=== PATIENT | female | born 1970 | race Caucasian/White ===

== ENCOUNTER 2017-01-06 12:41 | Emergency (ER) | payer OTHER ==
[2017-01-06] MEDS ORDERED: Ketorolac Tromethamine 60 MG/2 ML VIAL ONE (13:36)
[2017-01-06] MEDS ORDERED: traMADol HCl 50 MG TAB ONE (13:37)
== END 2017-01-06 14:15 | disposition home or self-care (01) ==
LOC: ERS 12:41
DX: M54.12 Radiculopathy, cervical region (principal); F41.9 Anxiety disorder, unspecified; F32.9 Major depressive disorder, single episode, unspecified; F43.10 Post-traumatic stress disorder, unspecified; F17.210 Nicotine dependence, cigarettes, uncomplicated
CPT/HCPCS: 96372; J1885

== ENCOUNTER 2017-01-30 14:55 | Outpatient (CLI) | payer OTHER ==
--- NOTE | 2017-01-30 20:16 | RAD ---
FIVE VIEWS CERVICAL SPINE INCLUDING FLEXION AND EXTENSION VIEWS: 01/30/17 HISTORY: Cervical radiculopathy. Patient states right sided neck pain with radiation of pain into the right a rm as well as third through fifth digit numbness. Symptoms have been present for a few years. FINDINGS: C1 to the cervicothoracic junction is seen on the lateral view. There is straightening of the normal cervical lordotic curvature. Osteophytes are seen anteriorly at multiple levels predominantly in th e lower cervical spine and greatest at C5-6 level. No fracture or subluxation is seen. prevertebral soft tissues are within normal limits. IMPRESSION: Mild degenerative changes in the cervical spine, but no fracture or subluxation is seen. POS: [facility]
--- NOTE | 2017-01-30 20:32 | RAD ---
FOUR IMAGES OF THE LUMBAR SPINE 01/30/17 HISTORY: Lumbar radiculopathy and bilateral hip pain. Patient has pain radiating down left lateral leg. Sympt oms have been present for a few months. FINDINGS: There are six nonribbearing lumbar type vertebral bodies. Chest x-ray on 09/02/16 demonstrates twelve thoracic ribs. Vertebral body heights and intervertebral disc spaces are within normal limits. Mini mal osteophytes are seen anteriorly at several levels. No fracture or subluxation is seen involving the lumbar spine. There is slight right convexed curvature of the thoracolumbar spine. There is sugg estion of a punctate grouping of calcifications in the right lower quadrant adjacent to the L4-5 lev el and these calcifications appears to be anteriorly located on the lateral view and are only seen o n the extension lateral view of the lumbar spine. The exact etiology for these calcifications is unc ertain. IMPRESSION: 1. Grouping of punctate calcifications right lower quadrant of which the exact etiology is unce rtain. Followup abdominal radiograph is recommended. 2. Minimal degenerative changes in the lumbar spine. No fracture or subluxation is present. POS: [facility]
--- NOTE | 2017-01-30 21:06 | MRI ---
MRI CERVICAL SPINE NONCONTRAST: 01/30/17 HISTORY: 46-year-old female with cervical radiculopathy, M54.12. Right sided cervicalgia that radiates to the right upper extremity, with hypesthesia of the digits. FINDINGS: There is no Chiari I malformation. The cervical spinal cord is normal in size and signal. Vertebral body heights are maintained. There is multilevel mild to moderate degenerative disc disease, with mi ld disc space narrowing, broad-based, shallow disc-osteophyte complexes encroaching upon the anterio r aspect of the spinal canal, and bilateral uncinate process osteophytes, mostly small, throughout a ll levels of the cervical spine (except C1-2). C1-2: No central stenosis. C2-3: No central stenosis or high grade neural foraminal stenosis. Mild DJD of right facet joint. Es sentially normal left facet joint. C3-4: Essentially normal left facet joint. Mild to moderate right facet DJD. Moderate right neural f oraminal stenosis. No left neural foraminal stenosis. No central stenosis. C4-5: The combination of moderate DJD of right facet complex and asymmetrically prominent right unci layne process osteophytes, result in severe right neural foraminal stenosis. No left sided neural for aminal stenosis. No central spinal canal stenosis. In addition, there is bone marrow edema involving the entire right C4 lateral mass. There is also bone marrow edema involving the right superior vivi cular facet of C5, and separately, bone marrow edema in the right inferior articular facet of C5. Th ere is also soft tissue swelling and soft tissue edema around the right facet complex. The left face t joint is essentially normal. C5-6: No central stenosis. No high grade degenerative facet changes. Bilateral tiny nerve root sleev e cysts, right larger than left. Mild bilateral neural foraminal stenosis. C6-7: In addition to the disc-osteophyte complex, there is a superimposed shallow central and left p aracentral disc extrusion which is narrow the anteroposterior dimension, but has inferiorly migrated down to the pedicle level of C7. Overall, there is mild to moderate central spinal canal stenosis. Bilateral nerve root sleeve cysts, right larger than left. Mild bilateral neural foraminal stenosis. No degenerative facet changes. C7-T1: Tiny bilateral nerve root sleeve cyst. Mild bilateral neural foraminal stenosis, right greate r than left. Mild central spinal canal stenosis. No significant degenerative facet changes. IMPRESSION: 1. Cervical spondylosis, mild to moderate. 2. Right sided C4-5 facet arthritis, with bone marrow edema, surrounding soft tissue edema, and severe right neural foraminal stenosis, impinging on the exiting right C5 nerve root. 3. No cord impingement. POS: [facility]
--- NOTE | 2017-01-30 21:55 | MRI ---
MRI LUMBAR SPINE: 01/30/17 HISTORY: Lumbar radiculopathy. Noncontrast enhanced MRI images lumbar spine obtained. For the purposes of this dictation, the last freely mobile vertebral body will be considered to be t he L5 vertebral body. All other vertebral bodies numbered according to this. T12-L1, L1-2: Unremarkable. L2-3: There is some disc desiccation. There is a mild broad based disc bulge and mild facet and liga mentum flavum hypertrophy. No significant degree of central or neural foraminal narrowing is seen. L3-4: Disc desiccation is seen. There is a broad based central and right paracentral disc protrusion . The right paracentral protrusion narrows the anterior aspect of the L3-4 spinal canal mildly narro wing the lateral recess at L3-4. This may compress the right L4 nerve root as it passes through the lateral recess. The right L3 nerve root is unremarkable. L4-5: Disc desiccation is seen. An annular fissure is seen along the posterior aspect of the annulus fibrosis. A broad based disc bulge is seen. Bilateral facet and ligamentum flavum hypertrophy is se en. This results in mild central and lateral recess spinal stenosis. The neural foramen are patent. L5-S1: Unremarkable except for some mild facet hypertrophy. IMPRESSION: 1. Disc desiccation at L2-3. 2. Central and paracentral disc protrusions at L3-4 and L4-5 with some central and lateral rece ss stenosis. POS: [facility]
== END 2017-01-30 14:56 | disposition home or self-care (01) ==
LOC: TBSIIMAG 14:55
PROVIDERS: ATTEND Surgery
DX: M47.22 Other spondylosis with radiculopathy, cervical region (principal); M51.16 Intervertebral disc disorders with radiculopathy, lumbar region; M48.061 Spinal stenosis, lumbar region without neurogenic claudication; M46.92 Unspecified inflammatory spondylopathy, cervical region; M48.02 Spinal stenosis, cervical region
CPT/HCPCS: 72050; 72110; 72141; 72148

== ENCOUNTER 2017-02-08 07:45 | Outpatient (CLI) | payer OTHER ==
[2017-02-08] MEDS ORDERED: Gadobenate Dimeglumine 529 MG/1 ML (20ML VIAL) ONE (09:00)
--- NOTE | 2017-02-08 11:35 | CT ---
CT OF THE ABDOMEN AND PELVIS WITH IV CONTRAST: Date: 02/08/17 INDICATION: History of a calcified mass identified within the abdomen and pelvis on x-ray examination performed at [facility]. The patient is experiencing no pain and has only a history of a hysterecto my. COMPARISON: Lumbar spine radiographs dated 01/30/17. FINDINGS: The lung bases are clear. There is a healed fracture involving the right posterolateral 9th rib. The gallbladder is not visualized and may be surgically absent or prominently contracted. Small calc ific density is seen near the expected region of the cystic duct. There is some mild intrahepatic an d extrahepatic biliary ductal dilatation. The pancreas and spleen are normal appearing. The adrenal glands and kidneys are normal appearing. N o pathologically enlarged lymph nodes are grossly evident. There is a normal appendix in the right lower quadrant. There is a 1.2 x 1.7 cm hyperdense nodular lesion seen just posterior to the distal left ureter and the posterolateral aspect of the bladder. This does not appear to be contiguous to the bladder. The uterus is surgically absent. The adnexa on the left is not visualized. The right ovary is visualized on image 6, series 2, and is normal appearing by CT. The bladder, rectum, and perirectal soft tissues are unremarkable. There is mild disc degenerative disease of the lumbar spine. No acute fracture is evident. The stippled densities seen right of midline at the L4 level on the comparison lumbar spine radiogra ph has no CT equivalent. This may reflect artifact on the imaging receptor plate or on the patient's clothing. IMPRESSION: 1. Stippled density seen right of midline at the L4 level on the comparison radiograph dated is likely related to overlying artifact either from the patient's clothing or on the imaging rece ptor plate. 2. There is a nodular hyperdense lesion seen within the left lower hemipelvis that is posterior to the left ureter and posterolateral aspect of the bladder. This does not appear to be contiguous with the bladder; however, a small, thin-necked bladder diverticulum cannot be excluded. Alternatively, this may reflect some hyperdense fibrous tissue from the patient's hysterectomy. This also could ref lect an enlarged lymph node. Small endometrioma is part of the differential consideration. Recommend correlation with patient's history. A MRI of the pelvis with and without contrast is recommended to evaluate this lesion further. 3. Nonvisualization of the gallbladder, suspected to be surgically absent although not reported in the patient's history. 4. Other findings as above. POS: [facility]
--- NOTE | 2017-02-08 12:00 | MRI ---
MRI OF THE CERVICAL SPINE WITH IV CONTRAST: INDICATIONS: Concern for cervical facet lesion and cervical radiculopathy. TECHNIQUE: Multiplanar, multisequence MR images were obtained of the cervical spine with and without IV contras t. The patient only had T1 pre and post images in the axial and sagittal plain through this evaluat ion. Comparisons for additional sequences are made from a recently performed cervical spine MRI, da sam 01/30/2017. Comparisons are made with a CT of the cervical spine dated 02/08/2017. FINDINGS: As seen on the comparison MRI examination, dated 01/30/2017, there is marked joint hypertrophy and a bnormal signal involving the right C4-C5 facet complex. There is an area of subchondral T2 hyperint ensity with serpiginous enhancement involving the superior aspect of the right C5 facet joint with a ssociated posterior tract extending beyond the cortex, best seen on image 29 of series 7. This pino esponds to an area of subchondral lucency involving the superior aspect of C5 on the comparison CT e valuation. There is marked periarticular soft tissue enhancement of the right C4-C5 facet complex, in additional to enhancement of the right C4-C5 neural foramina. There is central enhancement withi n the right C4 and right C5 facet complex, as well as the adjacent lamina. There is some uncoverteb ral hypertrophy at this level, which, in addition to the facet complex, does induce severe right C4- C5 neural foraminal narrowing. No additional focal region of abnormal enhancement if demonstrated. The remainder of the examination appears similar. IMPRESSION: Abnormal signal and enhancement involving the right C4-C5 facet complex, with suspicion for a small focal area of subchondral enhancement and enhancing tract extending out the posterior aspect of the C5 complex. Differential considerations for this finding include an right C4-C5 facet septic arthri tis with associated small intraosseous abscess involving the superior aspect of C5. Alternatively, this may reflect changes of an inflammatory arthropathy with associated secondary osteoarthritic sher nge of the right C4-C5 complex. The subchondral lucency involving the superior aspect of C5 with en hancement may be related to a subchondral cyst like abnormality with associated enhancing synovium. There is adjacent enhancement of the right C4-C5 neural foramina, likely involving the right C5 ner ve. There is uncovertebral hypertrophy and joint hypertrophy inducing severe right C4-C5 neural for aminal narrowing. POS: [facility]
--- NOTE | 2017-02-08 12:19 | CT ---
CT OF THE CERVICAL SPINE WITHOUT CONTRAST: Indication: Neck pain with pain in the right third through fourth and fifth digits. FINDINGS: There is disc degenerative disease of C4 on C5 and C5 on C6. There is slight anterior translation of C4 on C5 of approximately 1.5 mm. There is near complete obliteration of the normal appearing right C4-5 facet joint with subchondral cyst like abnormality involving the superior aspect of C5. There is exuberant surrounding osteophytosis. The remaining additional facets appear within normal limits. There is facet joint hypertrophy and uncal vertebral hypertrophy at C4-5 inducing severe right neur al foraminal narrowing. There is mild bilateral facet joint degenerative change, right greater than right, at C5-6 and C6-7. No additional appreciable osseous central canal or neural foraminal narrowi ng is evident. IMPRESSION: 1. Prominent hypertrophy and loss of joint space delineation of the right C4-5 facet complex with ortiz rrounding osteophytosis is suspicious for advanced osteoarthritic change of the right C4-5 joint. Th is may be related to prior trauma, prior infection, or possibly inflammatory arthritis. The exuberan t joint hypertrophy and uncal vertebral hypertrophy at C4-5 induces severe right C4-5 neural foramin al narrowing. 2. Mild spondylosis of the cervical spine. POS: [facility]
== END 2017-02-08 07:46 | disposition home or self-care (01) ==
LOC: SCSMRI 07:45
PROVIDERS: ATTEND Surgery
DX: M47.22 Other spondylosis with radiculopathy, cervical region (principal); R19.00 Intra-abdominal and pelvic swelling, mass and lump, unspecified site; M89.9 Disorder of bone, unspecified; M53.82 Other specified dorsopathies, cervical region
CPT/HCPCS: 72125; 72142; 74177; A9579

== ENCOUNTER 2017-02-21 22:20 | Emergency (ER) | payer OTHER ==
[~2017-02-21 22:20] MED LIST: ISOVUE-370 76%-LOCM 1 ML ONE
[2017-02-21] MEDS ORDERED: Ondansetron HCl/PF 4 MG/2 ML Vial ONE (22:48)
[2017-02-21] MEDS ORDERED: Loperamide HCl 2 MG CAP ONE (22:48)
[2017-02-21 22:51] LABS: Anion Gap 14 mmol/L (-14-95); T. Carbon Dioxide 21.7 mmol/L (1.0-85.0); pH (Venous) 7.536 (7.35-7.45); vO2 Saturation-calc 51.1 % (0.0-100.0)
[2017-02-21] MEDS ORDERED: Ketorolac Tromethamine 30 MG/ML VIAL ONE (23:33)
[2017-02-21 23:55] LABS: ALT (SGPT) 55 U/L (8-55); AST (SGOT) 57 U/L (5-34); Alkaline Phosphatase 190 U/L (40-150); Anion Gap 19 mmol/L (10-20); BUN (Urea Nitrogen) 9 mg/dL (7.0-18.7); Bilirubin, Total 1.5 mg/dL (0.2-1.2); Calc. Creatinine Clearance 0 mL/min (70-130); Calcium 9.6 mg/dL (7.8-10.44); Carbon Dioxide 20 mmol/L (22-29); Chloride 102 mmol/L (98-107); Estimated GFR-MDRD 61; Globulin 3.4 g/dL (2.4-3.5); Lipase Less than 4 U/L (8-78); Protein, Total 7.7 g/dL (6.0-8.3)
--- NOTE | 2017-02-21 23:58 | CT ---
CT ABDOMEN AND PELVIS WITH IV CONTRAST 02/21/17 HISTORY: Abdominal pain. Fever. FINDINGS: Small hiatal hernia is apparent. There is dense air space infiltrate of the right posterior lung base . Gallbladder is not visualized and is presumed to be surgically absent. Nonspecific lymph nodes are scattered throughout the abdomen. Urinary bladder is unremarkable. The small hyperdense lesion at the left apex of the vaginal cuff is stable compared to the prior study. IMPRESSION: Right lower lobe pneumonia. POS: [facility]
[2017-02-22 00:07] LABS: Mean Platelet Volume 8.1 fL (7.4-10.4); Red Blood Cell (RBC) Count 4.72 mill/uL (4.20-5.40)
[2017-02-22 00:08] LABS: Band 13 % (5-11); Metamyelocyte 2 % (0-0); Neutrophil 72 % (42-75); Reactive Lymphocytes 1 % (0-10)
[2017-02-22] MEDS ORDERED: Acetaminophen 500 MG TAB ONE (00:15)
--- NOTE | 2017-02-22 07:47 | RAD ---
PORTABLE CHEST: Date: 02/21/17 HISTORY: Fever. FINDINGS: Heart size is within normal limits. There are infiltrative changes in the right lung base. Slightly i ncreased parahilar markings are also present. IMPRESSION: Pneumonic type infiltrate in the right lung base. POS: [facility]
== END 2017-02-22 01:45 | disposition home or self-care (01) ==
LOC: ERS 22:20
DX: J18.9 Pneumonia, unspecified organism (principal); F41.9 Anxiety disorder, unspecified; F32.9 Major depressive disorder, single episode, unspecified; F43.10 Post-traumatic stress disorder, unspecified; F17.210 Nicotine dependence, cigarettes, uncomplicated
CPT/HCPCS: 71010; 74177; 80053; 82330; 82803; 83690; 85025; 96361; 96365; 96375; J1885; J1956; J2405

== ENCOUNTER 2017-05-16 08:16 | Outpatient (CLI) | payer OTHER ==
--- NOTE | 2017-05-16 10:44 | MRI ---
MRI BRAIN WITH AND WITHOUT CONTRAST: DATE: 05-16-16 HISTORY: 47-year-old female with headache for one month. R51 TECHNIQUE: Multiple sequences obtained in axial, sagittal, and coronal planes; pre and post IV injection of gado linium-based contrast agent: 17 ml MultiHance. FINDINGS: The ventricles are normal in size and configuration. There is no major intraaxial signal abnormality , restricted diffusion, abnormal intraaxial enhancement, mass, midline shift or any other mass effect , recent intraaxial hemorrhage, or extraaxial fluid collection. There is an incidental finding of a t iny focus of enhancement in the right paramedian inferior right frontal lobe, consistent with a tiny developmental venous anomaly (DVA). There is no dural venous sinus thrombosis. Flow voids are grossly maintained in the major arteries of the [place]. There is a tiny, approximately 2 mm focus of T2 hyperintensity in the left anterior inferior frontal lobe. This is nonspecific, but is statisti grabiel most likely represents a tiny, minimal focus of chronic ischemic white matter change or migrain e lesion. IMPRESSION: Essentially normal. jn POS: [facility]
[2017-05-16] MEDS ORDERED: Gadobenate Dimeglumine 529 MG/1 ML (20ML VIAL) ONE (13:29)
== END 2017-05-16 08:17 | disposition home or self-care (01) ==
LOC: TBSIIMAG 08:16
PROVIDERS: ATTEND Surgery
DX: R51 Headache (principal)
CPT/HCPCS: 70553; A9579

== ENCOUNTER 2017-05-22 13:13 | Outpatient (CLI) | payer OTHER ==
[2017-05-22 14:06] LABS: Hemoglobin 14.7 g/dL (12.0-16.0); Mean Corpuscular HGB CONC 33.9 g/dL (32.0-36.0); Mean Corpuscular Volume 91.5 fl (81.0-99.0); Mean Platelet Volume 6.9 fL (7.4-10.4); Platelet Count 316 thou/uL (130-400); RBC Distribution Width 13.1 % (11.5-14.5); Red Blood Cell (RBC) Count 4.74 mill/uL (4.20-5.40)
== END 2017-05-22 13:14 | disposition home or self-care (01) ==
LOC: LABBT 13:13
PROVIDERS: ATTEND Orthopaedic Surgery
DX: Z01.812 Encounter for preprocedural laboratory examination (principal); G56.01 Carpal tunnel syndrome, right upper limb; G56.21 Lesion of ulnar nerve, right upper limb
CPT/HCPCS: 85027

== ENCOUNTER 2017-05-23 06:39 | Day surgery (SDC) | payer OTHER ==
[2017-05-22 13:31] VITALS: BMI 29.0
[2017-05-23] MEDS ORDERED: Clindamycin/D5W 900 mg/50 ml Premix Bag ONE (07:08)
[2017-05-23] MEDS ORDERED: Levofloxacin 500 mg/D5W 100 ml Premix Bag ONE (07:08)
[2017-05-23] MEDS ORDERED: Midazolam HCl 2 mg/2 ml Vial ONE (08:09)
[2017-05-23] MEDS ORDERED: Ondansetron PF 4 MG/2 ML Vial ONE ×3 (08:22→15:27)
[2017-05-23] MEDS ORDERED: Fentanyl 100 MCG/2 ML VIAL ONE (08:22)
[2017-05-23] MEDS ORDERED: Famotidine/PF 20 mg/2ml Vial ONE (08:26)
[2017-05-23] MEDS ORDERED: Lidocaine 1% w/Epinephrine 1:200K 30 ML VIAL ONE (08:56)
--- NOTE | 2017-05-23 12:15 | OP ---
DATE OF PROCEDURE: 05/23/2017 PREOPERATIVE DIAGNOSES: 1. Right carpal tunnel syndrome. 2. Right cubital tunnel syndrome. PROCEDURE PERFORMED: 1. Right carpal tunnel release, open. 2. Right cubital tunnel release, open. 3. A long-arm splint. STAFF: Warner Kc M.D. [employer] OPERATOR: None. ANESTHESIA: Rubi. The patient received LMA with 10 mL 1% lidocaine with epinephrine cubital tu nnel subcutaneous 6 mL lateral with epinephrine subcutaneous carpal tunnel release. IMPLANTS: None. ANTIBIOTICS: Levaquin 500 and clindamycin 900. TOURNIQUET TIME: 40 minutes. COMPLICATIONS: None. HISTORY OF PRESENT ILLNESS: Ms. Islas is a pleasant 47-year-old female who presented to me with y ears of right elbow and wrist pain, had nerve conduction studies showing carpal tunnel. The patient had symptoms consistent with cubital tunnel. I discussed with the patient the risks and benefits of open release of the cubital tunnel and carpal tunnel to include pain, scar, bleeding, infection, herman ge to vital structures, decreased range of motion or strength further procedure, continued pain despi te surgical intervention. The patient understood these risks and benefits and elected to proceed. PROCEDURE IN DETAIL: Timeout was performed designating the patient's right upper extremity as the op erative site based on sight, consents, markings. After completion of timeout, the tourniquet was bro ught up. PROCEDURE #1: I made an incision on the radial aspect of the fourth ray proximal to Rene's cardina l line down through skin, came down the palmar fascia, which was split, came down to the palmaris miky vis, which was fettered off the transverse carpal ligament and split the transverse carpal ligament, protecting the nerve with a hemostat throughout. I ensured that I had released and had a fingerbread th of room in the volar wrist. I then washed and closed with 3-0 nylon stitches. PROCEDURE #2: I then turned my efforts to my cubital tunnel, I made an incision just over the e commerce director omedial aspect medial epicondyle down through skin, came down through the fat pad, found the patient' s ulnar nerve. I released it proximally and ensured that there was no tenting across, I made fingerb readths of room for across the inner muscular septum, came down the split using split as radially as possible to create a flap of the Collins's fascia to release the nerve from the cubital tunnel. I th en went distally, ensured that the muscle was split as well as the fascia split so I had a complete r elease, the nerve was left in place. I used 2-0 Vicryl with the remnant with the fascia from Collins 's ligament to close the subcu to act as a buffer from allowing it to sublux. I then washed, closed with 2-0 and 3-0 nylon, I injected 10 mL of 1% lidocaine subcu within the elbow and 6 mL within the h and. I let the tourniquet down after 40 minutes. I applied a long arm splint on the patient's arm.
[2017-05-23] MEDS ORDERED: PROPOFOL 200 MG/20 ML VIAL ONE (15:27)
[2017-05-23] MEDS ORDERED: Dexamethasone 20 MG/5 ML VIAL ONE (15:27)
[2017-05-23] MEDS ORDERED: Ketorolac Tromethamine 30 MG/ML VIAL ONE (15:27)
[2017-05-23] MEDS ORDERED: PHENYLEPHRINE-NS 100 MCG/ML 10 ML SYRINGE ONE (15:27)
[2017-05-23] MEDS ORDERED: Lidocaine 1% PF 5 ML VIAL ONE (15:27)
== END 2017-05-23 11:05 | disposition home or self-care (01) ==
LOC: SDC 06:39
PROVIDERS: ATTEND Orthopaedic Surgery
PROC: 01N40ZZ Release Ulnar Nerve, Open Approach (ICD-10-PCS; principal; 2017-05-23)
PROC: 01N50ZZ Release Median Nerve, Open Approach (ICD-10-PCS; principal; 2017-05-23)
DX: G56.01 Carpal tunnel syndrome, right upper limb (principal); G56.21 Lesion of ulnar nerve, right upper limb; F43.10 Post-traumatic stress disorder, unspecified; Z88.0 Allergy status to penicillin; Z90.710 Acquired absence of both cervix and uterus; Z90.49 Acquired absence of other specified parts of digestive tract; Z98.890 Other specified postprocedural states
CPT/HCPCS: J1100; J1885; J1956; J2001; J2250; J2405; J2704; J3010; J3490; S0028

== ENCOUNTER 2018-03-28 08:27 | Outpatient (CLI) | payer OTHER ==
--- NOTE | 2018-03-28 12:07 | MRI ---
MRI CERVICAL SPINE NONCONTRAST: Date: 03/28/18 HISTORY: 48-year-old female with cervicalgia and right cervical radiculopathy. COMPARISON: 01/30/17. FINDINGS: Images are mildly degraded by patient motion, especially the axial images. The image resolution is po orer than on 01/30/17. Some of the discrepancies between the current findings and previous findings c ould be due to the lower quality of the current images. Cervical spinal cord is normal in size and si gnal. No major bone marrow signal abnormality. Vertebral body heights are maintained. There is multil evel mild to moderate degenerative disc disease, with mild disc space narrowing, broad-based, shallow disc-osteophytic bar complexes encroaching upon the anterior aspect of the spinal canal, and bilater al uncinate process osteophytes encroaching upon the neural foramina (mostly small), throughout all l evels of the cervical spine (except C1-2). There is multilevel facet DJD. C1-2: No central stenosis. C2-3: No central stenosis or high grade neural foraminal stenosis. Mild DJD of right facet joint. Es sentially normal left facet joint. C3-4: Mild left facet DJD. Moderate to severe right facet DJD. Mild bilateral neural foraminal steno sis, right greater than left. No high grade central stenosis. C4-5: Somewhat severe right facet DJD and asymmetrically moderate size right uncinate process osteop hytes, result in severe right neural foraminal stenosis. The previously demonstrated bone marrow migel a involving the right facet complex has significantly improved or resolved. There is a right facet jayesh int effusion. Again demonstrated is the soft tissue thickening around the right facet joint. The migel a associated with this has improved. Mild degenerative changes of the left facet joint. No high grade left neural foraminal stenosis. No high grade central stenosis. C5-6: Mild bilateral degenerative facet changes. No high grade central stenosis. Mild bilateral neur al foraminal stenosis. C6-7: Mild to moderate central spinal canal stenosis. Slight involution of the inferiorly migrated s mall component of left paracentral small disc herniation. Right nerve root sleeve cyst. Probable left neural foraminal nerve root sleeve cyst. Mild bilateral neural foraminal stenosis. Normal bilateral facet joints. C7-T1: Moderate bilateral neural foraminal stenosis. Mild to moderate central spinal canal stenosis. IMPRESSION: 1. Cervical spondylosis, with multilevel mild to moderate degenerative disc disease and facet osteoa rthrosis (worst on the right at C3-4 and C4-5 facet joints). 2. Right-sided C4-5 facet arthritis. The bone marrow edema here has improved, but the soft tissue th ickening surrounding the right facet complex remains unchanged in size. 3. Severe right C4-5 neural foraminal stenosis. POS: [facility]
== END 2018-03-28 08:28 | disposition home or self-care (01) ==
LOC: BICMRI 08:27
PROVIDERS: ATTEND Surgery
DX: M79.603 Pain in arm, unspecified (principal); M47.812 Spondylosis without myelopathy or radiculopathy, cervical region; M48.02 Spinal stenosis, cervical region; M50.30 Other cervical disc degeneration, unspecified cervical region
CPT/HCPCS: 72141

== ENCOUNTER 2018-04-11 12:26 | Observation (INO) | payer OTHER, SELFPAY ==
[2018-04-11] MEDS ORDERED: Lidocaine Viscous Sol 2% 15 ml UD Cup ONE (12:57)
[2018-04-11] MEDS ORDERED: Mag-Al 1200 mg/1200 mg/30 ML UDCUP ONE (12:57)
[2018-04-11 13:17] LABS: #Basophils 0.1 thou/uL (0.0-0.2); #Lymphocytes 2.1 thou/uL (1.20-3.40); #Monocytes 0.6 thou/uL (0.11-0.59); #Neutrophils 3.7 thou/uL (1.40-6.50); %Basophils 1.3 % (0.0-1.0); %Eosinophils 0.5 % (0.0-10.0); %Lymphocytes 32.1 % (21.0-51.0); %Monocytes 9.2 % (0.0-10.0); %Neutrophils 56.9 % (42.0-75.0); Hemoglobin 12.8 g/dL (12.0-16.0); Mean Corpuscular HGB CONC 33.9 g/dL (32.0-36.0); Mean Corpuscular Hemoglobin 28.4 pg (27.0-31.0); Mean Corpuscular Volume 83.8 fL (78.0-98.0); Mean Platelet Volume 7.6 fL (7.4-10.4); Platelet Count 339 thou/uL (130-400); RBC Distribution Width 14.3 % (11.5-14.5); White Blood Cell (WBC) Count 6.5 thou/uL (4.8-10.8)
[2018-04-11 13:46] LABS: ALT (SGPT) 18 U/L (8-55); AST (SGOT) 18 U/L (5-34); Albumin 3.7 g/dL (3.5-5.0); Alkaline Phosphatase 107 U/L (40-150); Anion Gap 11 mmol/L (10-20); BUN (Urea Nitrogen) 11 mg/dL (7.0-18.7); Bilirubin, Total 0.4 mg/dL (0.2-1.2); CK (CPK) 94 U/L (29-168); Calc. Creatinine Clearance 0 mL/min (70-130); Calcium 8.7 mg/dL (7.8-10.44); Carbon Dioxide 26 mmol/L (22-29); Chloride 108 mmol/L (98-107); Estimated GFR-MDRD 53; Globulin 2.5 g/dL (2.4-3.5); Glucose 89 mg/dL (70-105); Lipase 15 U/L (8-78); Potassium 4.5 mmol/L (3.5-5.1); Protein, Total 6.2 g/dL (6.0-8.3); Sodium 140 mmol/L (136-145)
--- NOTE | 2018-04-11 14:05 | RAD ---
PORTABLE CHEST ONE VIEW: 04/11/2018 12:42 p.m. HISTORY: Chest pain. COMPARISON: 02/21/2017 FINDINGS: The heart size is normal. The lungs are well expanded without focal areas of consolidation, pneumoth orax, or pleural effusions. IMPRESSION: No radiographic evidence of acute cardiopulmonary process. POS: [facility]
[2018-04-11 14:14] LABS: Bilirubin Negative (Negative); Blood, Urine Negative (Negative); Clarity CLOUDY (Clear); Glucose, Urine (Dipstick) Negative (Negative); Leukocyte Negative (Negative); Nitrite Negative (Negative); Protein, Urine (Dipstick) Negative (Neg-Trace); Specific Gravity, Urine 1.008 (1.002-1.036); Urobilinogen 0.2 mg/dL (0.2-1.0)
[2018-04-11] MEDS ORDERED: Ketorolac Tromethamine 30 MG/ML VIAL ONE (15:23)
[2018-04-11] MEDS ORDERED: Nitroglycerin 0.4 MG TAB (25 Tab Bottle) ONE (16:11)
--- NOTE | 2018-04-11 16:11 | PDOC.FPRHP ---
- History of Present Illness Chief Complaint: CP History of Present Illness: 48yo F with pmh of GERD and gastric ulcers presents with worsening substernal CP with radiation to L shoulder x 1 week. Pain is worse with meals and on exertion, not relieved by rest. Pt reports associated SOB and diaphoresis with exertion as well as 5 episodes of vomiting since Saturday. 3 have had some dark red color. Pt also reports bright red blood in stool intermittenly though she has hx of hemmorhoids. No hx of liver disease or etoh abuse. ED Course: s/p ASA, nitro, GI coctail trop neg, EKG wnl, CXR wnl - Allergies/Adverse Reactions Allergies Allergy/AdvReac Type Severity Reaction Status Date / Time Penicillins Allergy Verified 05/22/17 13:32 - Home Medications Medication Instructions Recorded Confirmed Type Albuterol Sulfate HFA (OR) 2 - 4 puff INH Q6HR PRN 05/22/17 04/11/18 History [Proventil Hfa (or)] Citalopram Hydrobromide [Celexa] 40 mg PO HS 05/22/17 04/11/18 History Pravastatin Sodium 20 mg PO HS 05/22/17 04/11/18 History hydrOXYzine [Atarax] 50 mg PO TID PRN 05/22/17 04/11/18 History tiZANidine HCl [Tizanidine HCl] 4 mg PO BID PRN 05/22/17 04/11/18 History Acetaminophen [Tylenol Regular 650 mg PO Q4H PRN tab 04/12/18 Rx Strength] Amlodipine [Norvasc] 5 mg PO DAILY #30 tab 04/12/18 Rx Pantoprazole [Protonix] 40 mg PO BID 30 Days #60 tab 04/12/18 Rx - History PMHx: GERD, gastric ulcers (2006, last EGD 2006), COPD, carpal tunnel, cervical neuropathy (chronic) PSHx: cholecystectomy, hysterectomy, carpal tunnel x2, x2 FHx: CAD: Father had several MIs (first at age 48), mother had [place] in 50s Social: Former cocain abuse, active smoker (quitting with use of patch) 30 pack years, denies etoh - Review of Systems General: reports: fatigue, other (chills) Eyes: denies: eye pain, vision changes ENT: denies: nasal congestion, rhinorrhea Respiratory: reports: cough, shortness of breath Cardiovascular: reports: chest pain. denies: palpitation Gastrointestinal: reports: nausea, vomiting, abdominal pain, GI bleeding Genitourinary: denies: dysuria, discharge Skin: denies: rashes, lesions Musculoskeletal: reports: pain (chronic), arthritis/arthralgias Neurological: denies: syncope, seizure Psychological: denies: anxiety, depression - Vital signs BP: [148/85] HR: [66] RR: [20] Tmax: [99] Pox: [99]% on [ra] Wt: [82kg] - Physical Exam Constitutional: awake, alert and oriented, well developed HEENT: EOMI, conjunctiva clear, grossly normal vision, grossly normal hearing, MMM Neck: trachea midline, no JVD Chest: no-tender to palpation, no lesions Heart: RRR, normal S1/S2, pulses present, no edema Lungs: CTAB, no wheezing Abdomen: soft, other (TTP in epigastric area, it reproduces CP as well) Musculoskeletal: normal structure, normal tone Neurological: no focal deficit, normal sensation Skin: no rash/lesions, good turgor Heme/Lymphatic: no unusual bruising or bleeding, no purpura Psychiatric: normal mood and affect, good judgment and insight FMR H&P: Results - Labs Result Diagrams: 04/12/18 04:44 04/12/18 04:44 Lab results: WBC 6.5 thou/uL (4.8-10.8) 04/11/18 13:01 Hgb 12.8 g/dL (12.0-16.0) 04/11/18 13:01 Hct 37.7 % (36.0-47.0) 04/11/18 13:01 MCV 83.8 fL (78.0-98.0) 04/11/18 13:01 Plt Count 339 thou/uL (130-400) 04/11/18 13:01 Neutrophils % 56.9 % (42.0-75.0) 04/11/18 13:01 Sodium 140 mmol/L (136-145) 04/11/18 13:01 Potassium 4.5 mmol/L (3.5-5.1) 04/11/18 13:01 Chloride 108 mmol/L (98-107) H 04/11/18 13:01 Carbon Dioxide 26 mmol/L (22-29) 04/11/18 13:01 BUN 11 mg/dL (7.0-18.7) 04/11/18 13:01 Creatinine 1.09 mg/dL (0.6-1.1) 04/11/18 13:01 Glucose 89 mg/dL (70-105) 04/11/18 13:01 Calcium 8.7 mg/dL (7.8-10.44) 04/11/18 13:01 Total Bilirubin 0.4 mg/dL (0.2-1.2) 04/11/18 13:01 AST 18 U/L (5-34) 04/11/18 13:01 ALT 18 U/L (8-55) 04/11/18 13:01 Alkaline Phosphatase 107 U/L (40-150) 04/11/18 13:01 Creatine Kinase 94 U/L (29-168) 04/11/18 13:01 Serum Total Protein 6.2 g/dL (6.0-8.3) 04/11/18 13:01 Albumin 3.7 g/dL (3.5-5.0) 04/11/18 13:01 Lipase 15 U/L (8-78) 04/11/18 13:01 Urine Ketones Negative mg/dL (Negative) 04/11/18 Unknown Urine Blood Negative (Negative) 04/11/18 Unknown Urine Nitrite Negative (Negative) 04/11/18 Unknown Ur Leukocyte Esterase Negative (Negative) 04/11/18 Unknown FMR H&P: A/P - Problem List (1) Chest pain Status: Acute Code(s): R07.9 - CHEST PAIN, UNSPECIFIED (2) GERD (gastroesophageal reflux disease) Status: Acute Code(s): K21.9 - GASTRO-ESOPHAGEAL REFLUX DISEASE WITHOUT ESOPHAGITIS (3) GIB (gastrointestinal bleeding) Status: Acute Code(s): K92.2 - GASTROINTESTINAL HEMORRHAGE, UNSPECIFIED (4) Carpal tunnel syndrome Status: Acute Code(s): G56.00 - CARPAL TUNNEL SYNDROME, UNSPECIFIED UPPER LIMB (5) Neuropathy Status: Acute Code(s): G62.9 - POLYNEUROPATHY, UNSPECIFIED (6) Degenerative joint disease Status: Acute Code(s): M19.90 - UNSPECIFIED OSTEOARTHRITIS, UNSPECIFIED SITE - Plan 48 yo CF with PMHx GERD and significant family history of CAD presents with chest pain Typical chest pain A- considering significant hx of GERD and gastric ulcers this is likely 2/2 GI causes however pt has Heart score of 4 and Cardiac workup is more than reasonable. Trop neg, ekg neg, cxr neg P- Trend trops - 325 ASA - TSH, Mg, Phos - TTE - Stress in a.m. Possible hematemesis A- pt reports 3 episodes of dark red-brown emesis over last week. H/H is wnl. Pt has no hx of liver disease or etoh missuse and is hemodynamically stable. P- Send emesis for occult blood - Monitor closely with AM h/h - D/C NSAIDs - Protonix BID Tobacco abuse - Encouraged cessation, patch prn Likely HTN - Monitor and start meds as appropriate GERD A- pt was on pantoprazole at home 40mg daily P- BID PPI - H. pylori serum testing - Will need prompt EGD outpatient if not here DJD - D/C NSAID - tylenol prn - Upcoming surgery with Dr. Casey Likely COPD - monitor respiratory status - Recommend d/c smoking H/o cocaine abuse - Regular use but none in last > 7 years Cervical neuropathy -home meds Code: FULL CODE FMR H&P: Upper Level - Pertinent history 48 yo F with PMHx gastric ulcers, tobacco abuse, cocaine abuse (not in last 7+ years) who presents to ED with cc of epigastric/chest pain for the last week. Associated with n/v and possible hematemesis. She reports radiation down her L arm but cannot distinguish it from chronic radiculopathy pain. It is reproducible. She denies any association with eating or activity. She denies any known fever but endorses some chills. She denies any cardiac history. Regarding possible hematemesis, she reports 5 episodes of vomiting over the last week, 3 of which were brown and concerned her for possible blood. Denies any bright red blood or change in stool/melena. She has been a little bit constipated. Has a history of hemorrhoids and had 1 episode of some bright red blood on toilet paper this week. She has a history of hiatal hernia and gastric ulcers. Last EGD/eval was in 2006. Had colonoscopy at that time which was WNL per patient. - Pertinent findings VSS CXR reviewed and negative apart from hyperinflation Labs reviewed and WNL Gen: awake, alert, oriented HEENT: atraumatic, normocephalic, MMM, trachea midline CV: RRR, no murmur noted, TTP in mid lower chest and upper L breast RESP: CTAB ABD: soft, TTP in epigastrum EXT: pulses 2+ throughout, strength 5/5 Rectal: Internal/external hemorrhoids, no visible bleeding - Plan Date/Time: 04/11/18 1611 48 yo CF with PMHx HLD, tobacco abuse and significant family history of CAD presents with atypical chest pain 1. Atypical chest pain - Heart score 4 - Trend trops - 325 ASA - Tele obs - Stress in a.m. 2. Possible hematemesis - Send any emesis for occult blood - Monitor closely - H&H WNL - Recent diclofenac with h/o ulcers - D/C NSAIDs - Protonix BID 3. Tobacco abuse - Encouraged cessation 4. Likely HTN - Monitor and start meds as appropriate 5. GERD - BID PPI as above - H. pylori serum testing (recommend stool AG outpatient to distinguish between active/past infection if positive) - GI consult if any further episodes of hematemesis or concern for melena - FOBT negative - Will need prompt EGD outpatient if not here 6. DJD - D/C NSAID - Upcoming surgery with Dr. Casey 7. Likely COPD - Recommend d/c smoking 8. H/o cocaine abuse - Regular use but none in last > 7 years FULL CODE I, Kezia Galicia MD, PGY-3, have evaluated this patient and agree with findings/ plan as outlined by media relations intern resident. Pertinent changes/additions are listed here. Addendum - Attending - Attending Attestation Date/Time: 04/14/18 [id number] I personally evaluated the patient and discussed the management with Dr. Galicia and team on the day of admission. I agree with and repeated the History, Examination, Assessment and Plan documented above with any addition or exceptions noted below. Physical exam largely unremarkable. History c/f cardiac vs GI pain, resolved at time of evaluation. Plan for stress, PPI, and further treatment planning pending.
[2018-04-11] MEDS ORDERED: Ondansetron ODT 4 MG TAB SL PRN (17:09)
[2018-04-11] MEDS ORDERED: Ondansetron PF 4 MG/2 ML Vial IVP PRN ×2 (17:09→17:19)
[2018-04-11] MEDS ORDERED: Acetaminophen 325 MG TAB PO PRN ×2 (17:09→17:19)
[2018-04-11] MEDS ORDERED: Nicotine 21 MG PATCH TD SCH (17:19)
[2018-04-11] MEDS ORDERED: Ondansetron ODT 4 MG TAB PO PRN (17:19)
[2018-04-11 17:46] LABS: Magnesium 2.1 mg/dL (1.6-2.6); Phosphorus 3.6 mg/dL (2.3-4.7)
[2018-04-11 17:48] LABS: Cardiac Risk 6.1 (Less than 4.5)
[2018-04-11] MEDS ORDERED: Gaviscon Tablet PO PRN (18:02)
[2018-04-11 18:22] VITALS: BMI 30.2
[2018-04-11] MEDS: tiZANidine HCl 4 MG TAB PO PRN (18:40)
[2018-04-11] MEDS ORDERED: Simvastatin 5 MG TAB PO SCH (21:00)
[2018-04-11] MEDS ORDERED: Citalopram 20 MG TAB PO SCH (21:00)
[2018-04-11] MEDS: hydrOXYzine 25 MG TAB PO PRN (21:10)
[2018-04-12] MEDS: tiZANidine HCl 4 MG TAB PO PRN (03:26)
[2018-04-12] MEDS: hydrOXYzine 25 MG TAB PO PRN (03:26)
[2018-04-12 05:15] LABS: #Basophils 0.1 thou/uL (0.0-0.2); #Lymphocytes 2.6 thou/uL (1.20-3.40); #Monocytes 0.6 thou/uL (0.11-0.59); #Neutrophils 3.7 thou/uL (1.40-6.50); %Eosinophils 0.3 % (0.0-10.0); %Lymphocytes 36.8 % (21.0-51.0); %Monocytes 8.4 % (0.0-10.0); %Neutrophils 53.4 % (42.0-75.0); Hemoglobin 11.5 g/dL (12.0-16.0); Mean Corpuscular HGB CONC 33.6 g/dL (32.0-36.0); Mean Corpuscular Hemoglobin 28.2 pg (27.0-31.0); Mean Corpuscular Volume 83.8 fL (78.0-98.0); Mean Platelet Volume 7.8 fL (7.4-10.4); Platelet Count 314 thou/uL (130-400); RBC Distribution Width 14.4 % (11.5-14.5); Red Blood Cell (RBC) Count 4.07 mill/uL (4.20-5.40)
[2018-04-12 05:28] LABS: Anion Gap 9 mmol/L (10-20); BUN (Urea Nitrogen) 20 mg/dL (7.0-18.7); Calc. Creatinine Clearance 86 mL/min (70-130); Calcium 8.4 mg/dL (7.8-10.44); Carbon Dioxide 28 mmol/L (22-29); Chloride 109 mmol/L (98-107); Cholesterol 210 mg/dl (< 200 Desired); Estimated GFR-MDRD 55; Glucose 103 mg/dL (70-105); HDL Cholesterol 30 mg/dL (>60 Neg Risk); LDL Cholesterol, Calculated 123 mg/dL; Potassium 4.3 mmol/L (3.5-5.1); Sodium 142 mmol/L (136-145); Triglycerides 283 mg/dL (Less than 150)
--- NOTE | 2018-04-12 05:57 | PDOC.FM ---
- Subjective Subjective: NAEO. Patient says chest pain is still present substernally but feels it is much more likely related to GERD as it is a burning pain and she has had a lot of belching overnight. No vomiting since admission or SOB. - Objective MAR Reviewed: Yes Vital Signs & Weight: Vital Signs (12 hours) Temp Pulse Resp BP Pulse Ox 04/12/18 03:28 97.6 F 75 20 174/81 H 94 L 04/11/18 19:45 97.8 F 70 12 163/85 H 97 Weight Weight 84.912 kg I&O: 04/10/18 04/11/18 04/12/18 06:59 06:59 06:59 Intake Total 240 Balance 240 Result Diagrams: 04/12/18 04:44 04/12/18 04:44 Phys Exam - Physical Examination Constitutional: NAD HEENT: moist MMs Neck: supple, full ROM Respiratory: no wheezing, no rales, no rhonchi, clear to auscultation bilateral Cardiovascular: RRR, no significant murmur chest non-TTP Gastrointestinal: soft, non-tender, no distention, positive bowel sounds Neurological: non-focal, moves all 4 limbs Psychiatric: normal affect, A&O x 3 Skin: no rash, normal turgor Dx/Plan (1) Chest pain Code(s): R07.9 - CHEST PAIN, UNSPECIFIED Status: Acute (2) Carpal tunnel syndrome Code(s): G56.00 - CARPAL TUNNEL SYNDROME, UNSPECIFIED UPPER LIMB Status: Acute (3) Degenerative joint disease Code(s): M19.90 - UNSPECIFIED OSTEOARTHRITIS, UNSPECIFIED SITE Status: Acute (4) GERD (gastroesophageal reflux disease) Code(s): K21.9 - GASTRO-ESOPHAGEAL REFLUX DISEASE WITHOUT ESOPHAGITIS Status: Acute (5) GIB (gastrointestinal bleeding) Code(s): K92.2 - GASTROINTESTINAL HEMORRHAGE, UNSPECIFIED Status: Acute (6) Neuropathy Code(s): G62.9 - POLYNEUROPATHY, UNSPECIFIED Status: Acute - Plan Plan: 48 yo CF with PMHx GERD and significant family history of CAD who presented with chest pain x 1 week. Typical chest pain - Considering significant hx of GERD and gastric ulcers this is likely 2/2 GI causes. However due FH and typical presentation of pain, patient's admission Heart score was 4 warranting a Cardiac workup. Trop negx3, ekg neg, & cxr neg. - Will continue 325 ASA. - TSH, Mg, & Phos WNLs. - NPO for stress test this AM but will cancel due to patient not wanting to pay for the procedure. - Will instruct patient have both a TTE and stress test done as an outpatient. Possible hematemesis - Patient reports 3 episodes of dark red-brown emesis over last week. Hgb wnls on presentation but down from 12.8 to 11/5 this AM. No hx of liver disease or etoh missuse and is hemodynamically stable but did endorse h/o hemorrhoids. However, FOBT was negative. - Emesis for occult blood pending but patient has not has any further emesis since admission. - Will hold NSAIDS and continue Protonix BID. - Needs outpatient GI follow-up. Tobacco abuse - Encouraged cessation, nicotine patch prn. Likely HTN - BP elevated overnight. Will start med on Norvasc 5mg QD today and continue to monitor. HLD - 10 year ASCVD risk score of 13.8%. Moderate intensity statin and antihypertensive therapy with goal BP <130/80 recommended. - Will initiate statin therapy and norvasc as stated above. GERD - Increasing protonix to 40mg BID rather than QD. - H. pylori serum testing pending. - Will need prompt EGD as an outpatient. DJD - Will continue tylenol prn for pain control. - Upcoming surgery with Dr. Casey. Likely COPD - Will monitor respiratory status. - Recommend d/c smoking. H/o cocaine abuse - Regular use but none in last > 7 years. Cervical neuropathy -home meds Code: FULL CODE Addendum - Attending - Attending Attestation Date/Time: 04/12/18 1006 I personally evaluated the patient and discussed the management with Dr. Heredia. I agree with the History, Examination, Assessment and Plan documented above with any addition or exceptions noted below. Patient reports significant improvement in her pain complaint with the GI cocktail overnight. She has been ruled out for ACS. Due to financial concerns, she requests to delay NM stress testing to the outpatient setting. She does have elevated HEART score, but she has good outpatient follow up. We have discussed the risk/benefit of stress testing and she understands the risks of delaying this test but agrees to be set up in the outpatient setting. She has a history of PUD and has been using high dose NSAIDs recently and that is likely the cause of her current pain. Will be discharged on statin, BP control, and Protonix to treat presumed NSAID gastritis. HDS and no evidence of current bleeding.
[2018-04-12 08:20] VITALS: BP 175/78; TEMP 97.8
[2018-04-12] MEDS ORDERED: Enoxaparin Sodium 40 MG/0.4 ML SYRINGE SC SCH (09:00)
[2018-04-12] MEDS ORDERED: Citalopram 20 MG TAB PO SCH (09:00)
[2018-04-12] MEDS ORDERED: Amlodipine 5 MG TAB PO SCH (09:00)
--- NOTE | 2018-04-12 12:06 | DIS ---
DATE OF ADMISSION: 04/11/2018 DATE OF DISCHARGE: 04/12/2018 RESIDENT: Dawna Heredia MD ADMITTING AND ATTENDING PHYSICIAN: Todd Rodriguez MD. DISCHARGE ATTENDING: Ruben Triana MD. CONSULTS: None. PROCEDURES: Chest x-ray, which showed no acute cardiopulmonary process. PRIMARY DIAGNOSES: 1. Chest pain secondary to suspected gastroesophageal reflux disease/peptic ulcer disease. 2. Suspected peptic ulcer disease. 3. Hypertension. SECONDARY DIAGNOSES: 1. Gastroesophageal reflux disease. 2. Carpal tunnel syndrome. 3. Neuropathy. 4. Degenerative joint disease. 5. Hyperlipidemia. DISCHARGE MEDICATIONS: 1. Tizanidine 4 mg p.o. b.i.d. p.r.n. 2. Celexa 40 mg p.o. at bedtime. 3. Hydroxyzine 50 mg p.o. t.i.d. 4. Albuterol 2 to 4 puffs inhaled every 6 hours p.r.n. for shortness of breath. 5. Pravastatin 20 p.o. at bedtime. 6. Tylenol 650 mg p.o. every 4 hours p.r.n. for pain. 7. Amlodipine 5 mg p.o. daily. 8. Pantoprazole 40 mg p.o. b.i.d. for 30 days. 9. Tramadol 50 mg tabs every 6 hours p.r.n. for pain #20. DISCONTINUED MEDICATIONS: Diclofenac sodium 75 mg p.o. b.i.d. p.r.n. for pain. HOSPITAL COURSE: The patient is a 48-year-old female with past medical history significant for GERD and a remote h/o peptic ulcer disease, undiagnosed hypertension, and significant tobacco abuse, who presented to the emergency department with a chief complaint of substernal chest pain with radiation to her left shoulder that had been ongoing for the past week. She reported worsening with meals and on exertion, denied relief with rest and reported associated shortness of breath and diaphoresis. Of note, the patient also reported 3 episodes of hematemesis since Saturday and intermittent bright red blood per rectum, but also endorsed a known history of hemorrhoids. In the emergency department, routine lab work was obtained including troponins, CBC, CMP, magnesium, phosphate, & TSH all of which were negative or within normal limits. Her EKG was significant for normal sinus rhythm and her chest x-ray was showed no acute cardiopulmonary process. In addition, due to her reports of bloody stools, an FOBT was obtained which was negative for an occult blood. However, due to the patient's significant family history and personal smoking history, she had a heart score of 4, prompting us to admit her for observation overnight with plans to do a stress test and an echocardiogram the following morning. Before being moved up to the floor, the patient was given 324 mg of aspirin, nitroglycerin, and a GI cocktail. By the next morning, the patient reported that her pain was much more similar to her typical GERD pain that was burning in nature and substernal and denied any radiation. She also endorsed some persistent belching overnight, but denied any recurrent hematemesis or seeing blood in her stool or black stools. However, due to the fact that her workup thus far had been negative the patient elected to not go forward with the cardiac stress test and opted to proceed it on an outpatient basis as she reported being a recipient of indogent care and only being allotted $30,000/ year for healthcare services. She said she had an upcoming hand surgery already scheduled and was hoping to have a neck surgery as well. The patient was extensively counselled about what could happen if she does in fact have CAD and she doesn't have a full workup at this time and endorsed understanding but elected to decline a stress test at this time. Her stress test was therefore cancelled and the patient was inctructed to keep her follow-up appointment with her PCP, Dr. Kessler this upcoming week for outpatient referral for a stress test. She did however have an echo done was WNLs. Regarding the patient's hematemesis and reported bright red blood per rectum, as previously mentioned, the patient's FOBT was negative upon admission and her hemoglobin dropped only slightly from 12 to 11 over the course of her hospitalization. The patient remained hemodynamically stable for the duration of her hospital stay and was therefore instructed to discontinue all NSAID use and to follow up with her primary care physician in order to schedule an outpatient EGD for evaluation for possible recurrent peptic ulcer disease. The patient was also instructed to take Protonix twice a day rather than once a day. Serum H. pylori antigen was also ordered and the results will be followed up with the patient's primary care physician on her appointment on 04/17/2018. Regarding the patient's hypertension, the patient had a documented history of hypertension during an office visit with no official diagnosis of high blood pressure. However, for the duration of her hospital stay, her blood pressures remained significantly elevated in the 160 to 170 systolic range. The patient was therefore started on Norvasc 5 mg p.o. daily and instructed to follow-up with the primary care physician to ensure adequate blood pressure control. DISPOSITION: Stable. DISCHARGE INSTRUCTIONS: 1. Location: Home. 2. Diet: Heart healthy diet. 3. Activity: As tolerated. No restrictions. 4. The patient was instructed to follow up with her primary care physician, Dr. Yovani Kessler on 04/17/2018 in order to monitor her BP and to schedule an outpatient stress test as well as an EGD. Job ID: [id number] [facility]
[2018-04-12] MEDS ORDERED: Atorvastatin Calcium 40 MG TAB PO SCH (21:00)
--- NOTE | 2018-04-19 20:16 | EKG ---
Test Reason : Blood Pressure : / mmHG Vent. Rate : 073 BPM Atrial Rate : 073 BPM P-R Int : 122 ms QRS Dur : 082 ms QT Int : 398 ms P-R-T Axes : 028 -03 011 degrees QTc Int : 438 ms Normal sinus rhythm Minimal voltage criteria for LVH, may be normal variant Confirmed by SHOBHA BEJARANO ([id number]), news assignment editor ROCIO ELAINE ([id number]) on 04/19/2018 8:15:59 PM Referred By: Confirmed By:SHOBHA BEJARANO
== END 2018-04-12 10:43 | disposition home or self-care (01) ==
LOC: ERS 12:26 → 2SW 16:01
PROVIDERS: ADMIT Emergency Medicine; ATTEND Emergency Medicine
DX: R07.89 Other chest pain (principal); I10 Essential (primary) hypertension; K21.9 Gastro-esophageal reflux disease without esophagitis; M19.90 Unspecified osteoarthritis, unspecified site; E78.5 Hyperlipidemia, unspecified; G56.00 Carpal tunnel syndrome, unspecified upper limb; F17.210 Nicotine dependence, cigarettes, uncomplicated; K92.0 Hematemesis; K92.2 Gastrointestinal hemorrhage, unspecified; G62.9 Polyneuropathy, unspecified; Z79.899 Other long term (current) drug therapy; Z88.0 Allergy status to penicillin
CPT/HCPCS: 36415; 71045; 80048; 80053; 80061; 81003; 82274; 82550; 83690; 83735; 84100; 84443; 84484; 85025; 86677; 87804; 93005; 93306; 96361; 96374; G0378; J1650; J1885

== ENCOUNTER 2018-05-02 06:37 | Day surgery (SDC) | payer OTHER ==
[2018-05-01 11:16] VITALS: BMI 29.0
[2018-05-02 07:41] LABS: #Basophils 0.1 thou/uL (0.0-0.2); #Lymphocytes 2.6 thou/uL (1.20-3.40); #Monocytes 0.8 thou/uL (0.11-0.59); #Neutrophils 5.5 thou/uL (1.40-6.50); %Basophils 1.4 % (0.0-1.0); %Eosinophils 0.3 % (0.0-10.0); %Lymphocytes 28.3 % (21.0-51.0); %Monocytes 9.3 % (0.0-10.0); %Neutrophils 60.7 % (42.0-75.0); Hemoglobin 11.7 g/dL (12.0-16.0); Mean Corpuscular HGB CONC 32.2 g/dL (32.0-36.0); Mean Corpuscular Hemoglobin 27.1 pg (27.0-31.0); Mean Corpuscular Volume 84.1 fL (78.0-98.0); Mean Platelet Volume 7.7 fL (7.4-10.4); Platelet Count 318 thou/uL (130-400); RBC Distribution Width 14.2 % (11.5-14.5); Red Blood Cell (RBC) Count 4.32 mill/uL (4.20-5.40); White Blood Cell (WBC) Count 9.1 thou/uL (4.8-10.8)
[2018-05-02] MEDS ORDERED: Midazolam HCl 2 mg/2 ml Vial ONE ×2 (07:59→09:28)
[2018-05-02] MEDS ORDERED: Fentanyl 100 MCG/2 ML VIAL ONE ×2 (08:00→09:28)
[2018-05-02] MEDS ORDERED: Bupivacaine PF 0.5% 30 ML VIAL ONE (09:31)
[2018-05-02] MEDS ORDERED: Sodium Chloride 0.9% 10 ML ONE ×2 (09:31→09:33)
[2018-05-02] MEDS ORDERED: Bacitracin Zinc Ointment 30 gm TUBE ONE (09:31)
[2018-05-02] MEDS ORDERED: Clindamycin/D5W 600 mg/50 ml Premix Bag ONE (09:40)
[2018-05-02] MEDS ORDERED: Bupivacaine HCl 0.5%/Epinephrine 1:200,000/PF 30 ml Vial ONE (11:33)
[2018-05-02] MEDS ORDERED: PROPOFOL 200 MG/20 ML VIAL ONE (12:19)
[2018-05-02] MEDS ORDERED: ePHEDrine/0.9% NaCl/PF SYRINGE 50 mg/10 ml ONE (12:19)
[2018-05-02] MEDS ORDERED: Ondansetron PF 4 MG/2 ML Vial ONE (12:19)
[2018-05-02] MEDS ORDERED: Ketorolac Tromethamine 30 MG/ML VIAL ONE ×2 (12:19→12:56)
[2018-05-02] MEDS ORDERED: Lidocaine 1% PF 5 ML VIAL ONE (12:19)
[2018-05-02] MEDS ORDERED: Promethazine HCl 25 MG/ML VIAL ONE (12:26)
--- NOTE | 2018-05-02 15:01 | RAD ---
LEFT WRIST 2 VIEWS: HISTORY: Intraoperative films. FINDINGS: This is a series of intraoperative films that show pin placement at the level of the 1st metacarpal. IMPRESSION: Pin placement at the 1st metacarpal level. There has been resection of the trapezium. POS: MARISSA
--- NOTE | 2018-05-05 14:14 | OP ---
DATE OF PROCEDURE: 05/02/2018 PREOPERATIVE DIAGNOSIS: Osteoarthritis, thumb, carpometacarpal joint. POSTOPERATIVE DIAGNOSES/FINDINGS: Very arthritic thumb, carpometacarpal joint, left, with greater than 80% chondral loss on the trapezium and the thumb metacarpal base with osteophytes. PROCEDURES PERFORMED: 1. C-arm supervision less than or equal to 2 hours. 2. Left thumb total trapeziectomy. 3. Ligament replacement tendon interposition, carpometacarpal joint arthroplasty, left thumb. 4. Pinning of the first metacarpal to the second metacarpal on C-arm with 0.045 (1.25 mm) K-wire. INDICATIONS: Osteoarthritis, failed conservative treatment including injections, therapy, immobilization, and lifestyle changes. DESCRIPTION OF PROCEDURE: After successful general endotracheal anesthesia by [facility], limb was prepped and draped. The patient was already blocked as well. For this reason, we proceeded to make an outline of J-shaped incision at the junction of the dorsal and palmar skin curved towards the scaphoid in and at the flexor carpi radialis, palmar wrist flexion crease position. This was carried through skin and subcutaneous tissue and we dissected free the radial nerve branches preparing them, identified the abductor pollicis longus and then began an incision over the joint by retracting it. We exposed the joint capsule very thick and then tagged it with a 2-0 Monocryl undyed on both sides. We then lifted the fascia off the thumb metacarpal base for the thenar muscle to expose the entire carpometacarpal joint. We dissected more proximal to wound, identified the scaphotrapezial joint capsule and lifted this up and began dissecting first radially, then proximally, and then ulnarly and proximally, we identified the flexor carpi radialis tendon entering the palm of the hand. Here, we freed it from its fascial connection to the trapezium and circumferentially freed it distal to trapezium as well. Now, we lifted trapezium out without complication and found there was no osteophyte formation whatsoever at the trapezoid-scaphoid joint or the second carpometacarpal joint. Now, protecting the flexor carpi radialis tendon, we were able to identify a 15 mm distal to the outer edge of the thumb metacarpal and angled this towards the junction of the metacarpal chondral surface and the opposite side cortex and then drilled a 2.5 mm hole inline with thumbnail, with the thumbnail parallel to the table. We protected the flexor carpi radialis with a wide baby Hohmann spoonbill and then retracted. We then used a 3.5 to make this hole slightly large drill bit, cleared it with irrigation, placed a large curette on both sides to widely opened it and then ensured it was stable, which it was. We resected some deep osteophytes. At this point, we placed a heavy 3-0 Prolene deep in the ulna and the capsule below the ulnar base of the thumb carpometacarpal joint for later use to incorporate the graft. At this point, we placed a moist sponge in the wound and then proceeded to the forearm to harvest the graft. We then made an incision approximately 6 cm proximal to the wrist joint and another 15 cm proximal to harvest an approximately 20 cm long flexor carpi radialis tendon without complication. All muscle was taken from the musculotendinous junction and tendon have a low-profile by bringing it into the wrist, weaving a 2-0 Monocryl through around it to diminish its radius and diameter. We then pulled it through without complication from the second metacarpal side to the outer edge of the first metacarpal, then, before securing it in four different places, passed underneath the abductor pollicis and then reproduce a [place] type line position of the first through the second metacarpal and then pinned it in this position with C-arm confirming the pin position being adequate. Then, we did secure with a 3-0 Prolene in the four positions, twice to the outside metacarpal at the exit from the tunnel, underneath the abductor pollicis longus on both sides, and then deep to the flexor carpi radialis itself with appropriate amount of tension. We then took a Ambrocio needle, placed the 2 heavy sutures and placed in the deep capsule through the edge of the Ambrocio needle and then weaved the remaining flexor carpi radialis tendon into final interpositional arthroplasty formation. It was then tied deep in the capsular defect created by the trapeziectomy without complication. We released the tourniquet and cut the wire slightly below the skin, closed the capsule with hemostasis excellent, with interrupted 0 Vicryl, reapproximated the fascia with 2-0 Vicryl and then closed subcutaneous tissue with excellent hemostasis with interrupted 4-0 Monocryl undyed and then put Steri-Strips on the epidermal closure. Bulky dressing was then applied with thumb spica 4-inch splint and the patient left the operating room without evidence of anesthetic complication. Job ID: [id number]
== END 2018-05-02 14:18 | disposition home or self-care (01) ==
LOC: SDC 06:37
PROVIDERS: ATTEND Orthopaedic Surgery Hand Surgery
PROC: 0LX80ZZ Transfer Left Hand Tendon, Open Approach (ICD-10-PCS; principal; 2018-05-02)
PROC: 0LU807Z Supplement Left Hand Tendon with Autologous Tissue Substitute, Open Approach (ICD-10-PCS; principal; 2018-05-02)
DX: M18.12 Unilateral primary osteoarthritis of first carpometacarpal joint, left hand (principal); F43.10 Post-traumatic stress disorder, unspecified; Z90.711 Acquired absence of uterus with remaining cervical stump; Z90.49 Acquired absence of other specified parts of digestive tract; Z88.0 Allergy status to penicillin; Z79.899 Other long term (current) drug therapy; Z98.890 Other specified postprocedural states
CPT/HCPCS: 36415; 76000; 85025; 85652; J0670; J1885; J2001; J2250; J2405; J2550; J2704; J3010; J3490; S0020

== ENCOUNTER 2019-02-26 09:08 | Emergency (ER) | payer OTHER, SELFPAY ==
[2019-02-26] MEDS ORDERED: Pantoprazole 40 MG VIAL ONE (11:14)
[2019-02-26 11:45] LABS: #Basophils 0.1 thou/uL (0.0-0.2); #Lymphocytes 2.7 thou/uL (1.20-3.40); #Monocytes 0.6 thou/uL (0.11-0.59); #Neutrophils 4.1 thou/uL (1.40-6.50); %Basophils 1.1 % (0.0-1.0); %Eosinophils 0.4 % (0.0-10.0); %Lymphocytes 35.8 % (21.0-51.0); %Monocytes 8.4 % (0.0-10.0); %Neutrophils 54.3 % (42.0-75.0); Hemoglobin 12.4 g/dL (12.0-16.0); Mean Corpuscular HGB CONC 32.1 g/dL (32.0-36.0); Mean Corpuscular Hemoglobin 25.4 pg (27.0-31.0); Mean Corpuscular Volume 79.1 fL (78.0-98.0); Mean Platelet Volume 8.2 fL (7.4-10.4); Platelet Count 328 thou/uL (130-400); RBC Distribution Width 15.4 % (11.5-14.5); Red Blood Cell (RBC) Count 4.87 mill/uL (4.20-5.40); White Blood Cell (WBC) Count 7.6 thou/uL (4.8-10.8)
[2019-02-26] MEDS ORDERED: Sucralfate 1 GM TAB PO SCH (11:45)
[2019-02-26 12:08] LABS: ALT (SGPT) 29 U/L (8-55); AST (SGOT) 20 U/L (5-34); Albumin 4.7 g/dL (3.5-5.0); Alkaline Phosphatase 113 U/L (40-110); Anion Gap 13 mmol/L (10-20); BUN (Urea Nitrogen) 12 mg/dL (7.0-18.7); Bilirubin, Total 0.6 mg/dL (0.2-1.2); Calc. Creatinine Clearance 0 mL/min (70-130); Calcium 9.6 mg/dL (7.8-10.44); Carbon Dioxide 27 mmol/L (22-29); Chloride 104 mmol/L (98-107); Estimated GFR-MDRD 74; Globulin 3.2 g/dL (2.4-3.5); Glucose 95 mg/dL (70-105); Lipase 13 U/L (8-78); Potassium 4.1 mmol/L (3.5-5.1); Protein, Total 7.9 g/dL (6.0-8.3); Sodium 140 mmol/L (136-145)
[2019-02-26] MEDS ORDERED: Mag-Al 1200 mg/1200 mg/30 ML UDCUP ONE ×2 (13:29→13:34)
[2019-02-26] MEDS ORDERED: Lidocaine Viscous Sol 2% 15 ml UD Cup ONE (13:29)
== END 2019-02-26 13:58 | disposition home or self-care (01) ==
LOC: ERS 09:08
DX: R10.13 Epigastric pain (principal); K92.0 Hematemesis; I10 Essential (primary) hypertension; F41.9 Anxiety disorder, unspecified; F32.9 Major depressive disorder, single episode, unspecified; F43.10 Post-traumatic stress disorder, unspecified
CPT/HCPCS: 36415; 80053; 83690; 85025; 86850; 86900; 86901; 96374; C9113

== ENCOUNTER 2020-04-25 12:37 | Emergency (ER) | payer SELFPAY ==
[2020-04-25] MEDS ORDERED: Metoclopramide HCl 10 MG/2 ML VIAL ONE (13:45)
[2020-04-25] MEDS ORDERED: Ketorolac Tromethamine 30 MG/ML VIAL ONE (13:45)
[2020-04-25] MEDS ORDERED: diphenhydrAMINE 50 MG/ML VIAL ONE (13:45)
[2020-04-25] MEDS ORDERED: methylPREDNISolone Sod Succ/PF 125 MG/2 ML VIAL ONE (13:45)
--- NOTE | 2020-04-25 14:58 | CT ---
BRAIN CT WITHOUT IV CONTRAST: HISTORY: Headache. FINDINGS: Minimal air noted within some scalp and skull base veins presumably secondary to prior injection/IV. Mild sphenoid and ethmoid sinus mucosal disease. No focal mass or midline shift. No intra- or extra axial hemorrhage. Sinuses show no air fluid level. The mastoids are clear. IMPRESSION: Mild sinus mucosal congestion. No acute intracranial process. No mass or bleed. POS: RRE
== END 2020-04-25 15:33 | disposition home or self-care (01) ==
LOC: ERS 12:37
DX: J32.9 Chronic sinusitis, unspecified (principal); R51.9 Headache, unspecified; I10 Essential (primary) hypertension; Z79.899 Other long term (current) drug therapy
CPT/HCPCS: 70450; 96374; 96375; J1200; J1885; J2765; J2930

== ENCOUNTER 2022-01-07 20:00 | Emergency (ER) | payer SELFPAY ==
[2022-01-07 20:40] LABS: #Eosinphils 0.1 thou/uL (0.0-0.7); #Lymphocytes 2.7 thou/uL (1.20-3.40); #Monocytes 0.8 thou/uL (0.11-0.59); #Neutrophils 5.6 thou/uL (1.40-6.50); %Basophils 0.4 % (0.0-1.0); %Eosinophils 0.6 % (0.0-10.0); %Lymphocytes 29.4 % (21.0-51.0); %Monocytes 8.3 % (0.0-10.0); %Neutrophils 61.3 % (42.0-75.0); Hemoglobin 12.6 g/dL (12.0-16.0); Mean Corpuscular HGB CONC 32.3 g/dL (32.0-36.0); Mean Corpuscular Hemoglobin 28.9 pg (27.0-31.0); Mean Corpuscular Volume 89.5 fL (78.0-98.0); Mean Platelet Volume 7.5 fL (7.4-10.4); Platelet Count 310 thou/uL (130-400); RBC Distribution Width 14.8 % (11.5-14.5); Red Blood Cell (RBC) Count 4.36 mill/uL (4.20-5.40); White Blood Cell (WBC) Count 9.1 thou/uL (4.8-10.8)
[2022-01-07 20:53] LABS: Acetaminophen Less than 10.0 mcg/mL (10.0-30.0); Alcohol Less than 10 mg/dL (Less than 10); Salicylate Less than 8.0 mg/dL (15.0-30.0)
[2022-01-07 20:54] LABS: ALT (SGPT) Less than 7 U/L (8-55); AST (SGOT) 8 U/L (5-34); Albumin 3.6 g/dL (3.5-5.0); Alkaline Phosphatase 72 U/L (40-110); Anion Gap 13 mmol/L (10-20); BUN (Urea Nitrogen) 12 mg/dL (9.8-20.1); Bilirubin, Total 0.3 mg/dL (0.2-1.2); CK (CPK) 61 U/L (29-168); Calc. Creatinine Clearance 0 mL/min (70-130); Calcium 8.7 mg/dL (7.8-10.44); Carbon Dioxide 21 mmol/L (22-29); Chloride 111 mmol/L (98-107); Estimated GFR 60; Globulin 2.2 g/dL (2.4-3.5); Glucose 115 mg/dL (70-105); Lipase 20 U/L (8-78); Potassium 3.8 mmol/L (3.5-5.1); Protein, Total 5.8 g/dL (6.0-8.3); Sodium 141 mmol/L (136-145)
[2022-01-07 21:13] LABS: Bacteria/HPF 4+ HPF (None Seen); Bilirubin Negative (Negative); Blood, Urine Negative (Negative); Clarity Turbid (Clear); Glucose, Urine (Dipstick) Normal (Negative); Ketone, Urine Negative (Negative); Leukocyte 250 Leu/uL (Negative); Mucous/LPF Rare LPF (<2+); Nitrite 2+ (Negative); Protein, Urine (Dipstick) 30 mg/dL (Neg-Trace); RBC/HPF 0-3 HPF (0-3); Specific Gravity, Urine 1.027 (1.002-1.036); Urobilinogen Normal mg/dL (Less than 2); WBC/HPF 21-50 HPF (0-3); pH, Urine 5.5 (5.0-9.0)
[2022-01-07 21:19] LABS: Amphetamine Not Detected (NotDetected); Barbiturates Screen Not Detected (NotDetected); Benzodiazepine Screen Not Detected (NotDetected); Cocaine Metabolite Screen Detected (NotDetected); Methadone Not Detected (NotDetected); Methamphetamine Detected (NotDetected); Opiate Screen Not Detected (NotDetected); Oxycodone Screen Not Detected (NotDetected); Phencyclidine (PCP) Not Detected (NotDetected); THC/Cannabinoid Screen Not Detected (NotDetected); Tricyclic Screen Detected (NotDetected)
== END 2022-01-07 23:59 | disposition home or self-care (01) ==
LOC: ERS 20:00
DX: R47.1 Dysarthria and anarthria (principal); F19.90 Other psychoactive substance use, unspecified, uncomplicated; I10 Essential (primary) hypertension
CPT/HCPCS: 36415; 36416; 70450; 80053; 80306; 80307; 81003; 81015; 82140; 82550; 83690; 84443; 84484; 85025; 93005; 96360

== ENCOUNTER 2022-04-04 18:30 | Emergency (ER) | payer SELFPAY ==
[~2022-04-04 18:30] MED LIST changes: -ISOVUE-370 76%-LOCM 1 ML ONE; +Iopamidol-370 76% 500 ML 1 ML ONE
[2022-04-04 22:35] LABS: ALT (SGPT) 52 U/L (8-55); AST (SGOT) 38 U/L (5-34); Albumin 4.1 g/dL (3.5-5.0); Alkaline Phosphatase 109 U/L (40-110); Anion Gap 15 mmol/L (10-20); BUN (Urea Nitrogen) 9 mg/dL (9.8-20.1); Bilirubin, Total 0.6 mg/dL (0.2-1.2); Calc. Creatinine Clearance 0 mL/min (70-130); Calcium 9.3 mg/dL (7.8-10.44); Carbon Dioxide 29 mmol/L (22-29); Chloride 101 mmol/L (98-107); Estimated GFR 66; Glucose 134 mg/dL (70-105); Potassium 3.3 mmol/L (3.5-5.1); Protein, Total 7.1 g/dL (6.0-8.3); Sodium 142 mmol/L (136-145)
[2022-04-04 22:39] LABS: #Basophils 0.1 thou/uL (0.0-0.2); #Lymphocytes 1.7 thou/uL (1.20-3.40); #Monocytes 0.7 thou/uL (0.11-0.59); #Neutrophils 9.1 thou/uL (1.40-6.50); %Basophils 0.4 % (0.0-1.0); %Eosinophils 0.2 % (0.0-10.0); %Lymphocytes 14.7 % (21.0-51.0); %Monocytes 6.4 % (0.0-10.0); %Neutrophils 78.2 % (42.0-75.0); Hemoglobin 13.5 g/dL (12.0-16.0); Mean Corpuscular HGB CONC 33.9 g/dL (32.0-36.0); Mean Corpuscular Volume 88.5 fl (78.0-98.0); Mean Platelet Volume 5.9 fL (7.4-10.4); Platelet Count 326 10x3/uL (130-400); Red Blood Cell (RBC) Count 4.51 mill/uL (4.20-5.40); White Blood Cell (WBC) Count 11.6 10x3/uL (4.8-10.8)
[2022-04-04] MEDS ORDERED: Clindamycin/D5W 600 mg/50 ml Premix Bag ONE (22:52)
[2022-04-04] MEDS ORDERED: Morphine 4 MG/ML VIAL ONE (22:52)
[2022-04-04] MEDS ORDERED: Ondansetron PF 4 MG/2 ML Vial ONE (22:53)
[2022-04-05] MEDS ORDERED: Acetaminophen 500 MG TAB ONE (00:31)
== END 2022-04-05 00:35 | disposition home or self-care (01) ==
LOC: ERS 18:30
DX: H60.12 Cellulitis of left external ear (principal); I10 Essential (primary) hypertension; F17.210 Nicotine dependence, cigarettes, uncomplicated
CPT/HCPCS: 36415; 70487; 80053; 83605; 85025; 87040; 96374; 96375; J2270; J2405; J3490; Q9967

== ENCOUNTER 2023-01-08 12:58 | Emergency (ER) | payer OTHER ==
[2023-01-08] MEDS ORDERED: Triamcinolone 40 MG/ML VIAL ID SCH (14:45)
[2023-01-08] MEDS ORDERED: Bupivacaine PF 0.5% 30 ML VIAL IM SCH (15:00)
[2023-01-08] MEDS ORDERED: Bupivacaine 0.5% 10 ML VIAL IM SCH (15:00)
== END 2023-01-08 16:03 | disposition home or self-care (01) ==
LOC: ERS 12:58
DX: M25.462 Effusion, left knee (principal); I10 Essential (primary) hypertension; Z79.899 Other long term (current) drug therapy
CPT/HCPCS: 20610; J3301; J3490; S0020

== ENCOUNTER 2023-03-23 16:53 | Emergency (ER) | payer BC, OTHER ==
[2023-03-23] MEDS ORDERED: Ketorolac Tromethamine 30 MG/ML VIAL ONE (17:48)
[2023-03-23] MEDS ORDERED: Dexamethasone 10 MG/ML VIAL ONE (17:48)
[2023-03-23] MEDS ORDERED: Boostrix 0.5 ML (Tdap) VIAL (>/=7 yrs of age) ONE (17:49)
[2023-03-23] MEDS ORDERED: Clindamycin/D5W 900 MG in Premix 1 BAG IVPB SCH (18:00)
== END 2023-03-23 18:45 | disposition home or self-care (01) ==
LOC: ERS 16:53
DX: L03.213 Periorbital cellulitis (principal); I10 Essential (primary) hypertension; F17.290 Nicotine dependence, other tobacco product, uncomplicated
CPT/HCPCS: 90471; 90715; 96365; 96375; J1100; J1885; J3490